=== PATIENT | female | born 1960 | race Caucasian/White ===

== ENCOUNTER 2016-06-25 11:30 | Emergency (ER) | payer OTHER ==
[2016-06-25 11:46] VITALS: BMI 38.0
--- NOTE | 2016-06-25 11:52 | PDOC ---
History of Present Illness - General Chief Complaint: Chest Pain Stated Complaint: CHEST PAIN Time Seen by Provider: 06/25/16 11:51 - History of Present Illness Initial Comments: 06/25/16 12:25 Complaint: Pain right rib cage History of present illness: Patient has had pain for several days in the right parasternal area, right costal margin, and right upper back along the medial scapular border. The pain is worse with deep inspiration and movement of the right arm and torso. It is also aggravated by direct pressure along the right edge of the sternum and along the right lower rib cage. Review of systems, no nausea vomiting diaphoresis shortness of breath. No fever/ chills, URI symptoms, sore throat, or cough. Remainder systems reviewed and found to be negative Past medical history: Sleep apnea for which she uses CPAP, spinal stenosis for which she has chronic upper and lower back pain, with exacerbation recently. No heavy work or lifting. Obesity. Ftz-pijudjf-vizvhnbrq diabetes. Hypertension. Hypothyroid. Glaucoma. GERD. Medications: Losartan, metformin, omeprazole, Synthroid, eyedrops, and multiple vitamins. Social history: Former smoker, no current use of tobacco alcohol or nonprescription drugs ALLERGIES: House dust, pepper, perfume. No medication ALLERGIES are known Family history: Reviewed and noncontributory. Specifically, there is no early coronary artery disease in parents or siblings. Physical exam: Alert and oriented 3, moderately obese, no acute distress, cheerful and cooperative Afebrile, vital signs normal HEENT clear Neck supple without any masses or nodes Lungs clear with full breath sounds throughout bilaterally. There is mild splinting with deep inspiration. There are no wheezes rales or rhonchi. There is tenderness along the right sternal border and right costal margin to palpation. There is also trigger point tenderness along the medial scapular border on the right side posteriorly. CV S1 and S2 normal without murmur or gallop pulses symmetric no JVD or edema Abdomen nondistended, bowel sounds normal, soft without masses tenderness organomegaly. Extremities no CCE Neurological intact Skin clear, no rash, adequate turgor and mucous membranes Impression: Most likely musculoskeletal pain, costochondritis, trigger point tenderness in the upper back. Much less likely cardiac origin Plan: EKG and enzymes, symptomatic treatment and follow up primary M.D. if studies are normal. Past History - Past Medical History Allergies/Adverse Reactions: Allergies Allergy/AdvReac Type Severity Reaction Status Date / Time house dust Allergy Mild SNEEZING Verified 08/21/15 16:44 pepper Allergy Verified 06/25/16 11:32 perfume Allergy Verified 06/25/16 11:31 NKDA Allergy Uncoded 08/21/15 16:44 Home Medications: Ambulatory Orders Calcium Carbonate [Calcium] 1,200 mg PO DAILY 06/25/16 Cholecalciferol (Vitamin D3) [Vitamin D3] 1,000 unit PO DAILY 06/25/16 Cyanocobalamin [Vitamin B12 -] 1,000 mcg PO DAILY 06/25/16 Glucosam/Chond/Hyalu/Cf Borate [Move Free Joint Health Tablet] 1 each PO BID 04/01 Latanoprost 0.005% Eye Drops [Xalatan 0.005% Eye Drops -] 1 drop OU HS 06/25/16 Levothyroxine [Synthroid -] 100 mcg PO DAILY 06/25/16 Losartan Potassium 50 mg PO DAILY 06/25/16 Metformin HCl 500 mg PO BID 06/25/16 Omeprazole 40 mg PO DAILY 06/25/16 Polyethylene Glycol 3350 [Miralax (For Daily Use) -] 17 gm PO DAILY 06/25/16 Ranitidine HCl [Zantac] 150 mg PO DAILY 06/25/16 Turmeric Root Extract [Turmeric] 800 mg PO DAILY 06/25/16 Anemia: No Asthma: No Cancer: No Cardiac Disorders: No CVA: No COPD: No CHF: No Dementia: No Diabetes: Yes GI Disorders: Yes (GERD GASTRIC ULCER) Disorders: No HTN: Yes Hypercholesterolemia: Yes Liver Disease: No Seizures: No Thyroid Disease: Yes (NODULES) Other medical history: SLEEP APNEA, CPAP - Surgical History Abdominal Surgery: Yes Appendectomy: No Cardiac Surgery: No Cholecystectomy: No Lung Surgery: No Neurologic Surgery: No Orthopedic Surgery: No - Immunization History Immunization Up to Date: Yes - Psycho/Social/Smoking Cessation Hx Anxiety: No Suicidal Ideation: No Smoking History: Former smoker Have you smoked in the past 12 months: No Number of Cigarettes Smoked Daily: 0 If you are a former smoker, when did you quit?: 2004 Information on smoking cessation initiated: No Hx Alcohol Use: No Drug/Substance Use Hx: No Substance Use Type: None Hx Substance Use Treatment: No Cardiac Specific PMH - Complaint Specific PMHX Pacemaker: No *Physical Exam - Vital Signs Last Vital Signs Temp Pulse Resp BP Pulse Ox 98.4 F 78 18 125/70 100 06/25/16 11:30 06/25/16 11:30 06/25/16 11:30 06/25/16 11:30 06/25/16 11:30 ED Treatment Course - LABORATORY CBC & Chemistry Diagram: 06/25/16 12:15 06/25/16 12:15 - ADDITIONAL ORDERS Additional order review: Laboratory Results 06/25/16 06/25/16 06/25/16 12:15 12:15 12:15 INR 0.98 Sodium 135 L Potassium 4.4 Chloride 102 Carbon Dioxide 29 H Anion Gap 4 L BUN 16 Creatinine 0.6 Creat Clearance w eGFR > 60 Random Glucose 91 Calcium 9.4 Total Bilirubin 0.6 AST 35 ALT 41 H Alkaline Phosphatase 48 Creatine Kinase 43 Troponin I < 0.03 L Total Protein 6.1 L Albumin 4.1 06/25/16 12:15 RBC 4.63 MCV 86.0 MCHC 33.0 RDW 11.9 MPV 9.0 Neutrophils % 56.9 Lymphocytes % 28.3 Monocytes % 10.3 H Eosinophils % 3.4 Basophils % 1.1 - RADIOLOGY Radiology Studies Ordered: Category Date Time Status CHEST X-RAY PORTABLE* [RAD] Stat Radiology 06/25/16 13:17 Taken - Medications Given in the ED: ED Medications Discontinued Medications Generic Name Dose Route Start Last Admin Trade Name Freq PRN Reason Stop Dose Admin Ketorolac Tromethamine 30 mg 06/25/16 13:32 06/25/16 13:50 Toradol Injection - IVPUSH 06/25/16 13:33 30 mg ONCE ONE Administration Medical Decision Making - Medical Decision Making 06/25/16 12:06 EKG: Normal sinus rhythm 76/m. Normal axes and intervals. No significant ST-T wave changes. Normal EKG. 06/25/16 14:06 Chest x-ray clear CBC chemistries and cardiac enzymes without significant abnormalities It is highly likely that pain is musculoskeletal. Symptomatic treatment and follow up primary physician. *DC/Admit/Observation/Transfer Diagnosis at time of Disposition: Acute costochondritis - Discharge Dispostion Disposition: HOME Condition at time of disposition: Stable Admit: No - Referrals Referrals: Kay Dowd [Primary Care Provider] - 3 days - Patient Instructions Printed Discharge Instructions: DI for Atypical Chest Pain, DI for Costochondritis
[2016-06-25 13:09] LABS: BASOPHIL 1.1 % (0-2.0); EOSINOPHIL 3.4 % (0-4.5); MCH 28.4 pg (25.7-33.7); NEUTROPHILS 56.9 % (42.8-82.8); PLATELET COUNT 215 K/MM3 (134-434); RDW 11.9 % (11.6-15.6); WHITE BLOOD COUNT 5.7 K/mm3 (4.0-10.0)
[2016-06-25 13:13] LABS: INR 0.98 (0.82-1.09); PROTHROMBIN TIME (PATIENT) 10.7 SEC (10.2-13.0)
[2016-06-25 13:16] LABS: ALBUMIN 4.1 g/dl (3.5-5.0); ALK PHOS 48 U/L (32-92); ANION GAP 4 (8-16); BILIRUBIN,TOTAL 0.6 mg/dl (0.2-1.0); CALCIUM 9.4 mg/dl (8.4-10.2); CO2 29 mmol/L (22-28); CPK(DFH) 43 IU/L (26-140); CREATININE 0.6 mg/dl (0.6-1.3); GLUCOSE,RANDOM 91 mg/dl (74-106); SGOT/AST 35 U/L (10-42); SGPT/ALT 41 U/L (10-40); TOT PROT 6.1 g/dl (6.4-8.3)
[2016-06-25] MEDS ORDERED: KETOROLAC TROMETHAMINE 30 MG/1 ML VIAL IVPUSH ONE (13:32)
[2016-06-25 13:33] LABS: TROPONIN I (DFP) < 0.03 ng/ml (0.03-0.50)
[2016-06-25] MEDS ORDERED: KETOROLAC TROMETHAMINE 30 MG/1 ML VIAL ONE (13:41)
[2016-06-25 14:34] VITALS: BP 121/69; PULSE 77; TEMP 98.1
--- NOTE | 2016-06-27 11:12 | EKG ---
Test Reason : Blood Pressure : / mmHG Vent. Rate : 076 BPM Atrial Rate : 076 BPM P-R Int : 168 ms QRS Dur : 088 ms QT Int : 374 ms P-R-T Axes : 015 035 023 degrees QTc Int : 420 ms NORMAL SINUS RHYTHM NORMAL ECG NO PREVIOUS ECGS AVAILABLE Confirmed by TOMMIE STOUT MD ([id number]) on 06/27/2016 11:12:13 AM Referred By: PAPI ABREU Confirmed By:TOMMIE STOUT MD
== END 2016-06-25 14:35 | disposition home or self-care (01) ==
LOC: FER 11:30
PROC: 3E0333Z Introduction of Anti-inflammatory into Peripheral Vein, Percutaneous Approach (ICD-10-PCS; principal; 2016-06-25)
DX: M94.0 Chondrocostal junction syndrome [Tietze] (principal); K21.9 Gastro-esophageal reflux disease without esophagitis; I10 Essential (primary) hypertension; E78.00 Pure hypercholesterolemia, unspecified; E07.9 Disorder of thyroid, unspecified; G47.30 Sleep apnea, unspecified; E11.9 Type 2 diabetes mellitus without complications; Z87.891 Personal history of nicotine dependence
CPT/HCPCS: 36415; 71010-TC; 80053; 82550; 84484; 85025; 85610; 93005; 96374; 99285-25

== ENCOUNTER 2018-06-04 07:43 | Day surgery (SDC) | payer OTHER ==
[2018-05-27 17:04] VITALS: BMI 35.0
[2018-06-04] MEDS ORDERED: PROPOFOL 20 ML ONE ×3 (08:53)
[2018-06-04] MEDS ORDERED: LIDOCAINE HCL/PF 2% SDV 5ML VIAL ONE (08:53)
[2018-06-04 10:45] VITALS: BP 107/65; PULSE 65; TEMP 98
--- NOTE | 2018-06-08 18:39 | PATH ---
Surgical Pathology Report Patient Name: GREGG SAINI [facility]. Rec. #: [id number] /Age/Gender: 1960 (Age: 58) / F Account: [id number] Location: [facility] Taken: 06/04/2018 Received: 06/05/2018 Reported: 06/08/2018 Physicians: Trey Cortez M.D. Specimen(s) Received A: BX 2ND PART DUODENUM B: BX ANTRUM Clinical History History of polyps, GERD Final Diagnosis A. SECOND PART DUODENUM, BIOPSY: DUODENUM MUCOSA WITH NO SIGNIFICANT PATHOLOGIC CHANGES. NO HISTOLOGIC EVIDENCE OF CELIAC DISEASE. B. ANTRUM, BIOPSY: GASTRIC MUCOSA WITH CHRONIC GASTRITIS. IMMUNOSTAIN FOR H. PYLORI IS NEGATIVE. NEGATIVE FOR INTESTINAL METAPLASIA. Electronically Signed Aurelio Fraser M.D. Gross Description A. Received in formalin, labeled "second portion of duodenum" are 2 luis, irregular portions of soft tissue averaging 0.4 cm. in greatest dimension. The specimens are submitted in toto in one cassette. B. Received in formalin, labeled "antrum" are 2 luis, irregular portions of soft tissue measuring 0.3 and 0.4 cm. in greatest dimension. The specimens are submitted in toto in one cassette. 06/05/201806/05/2018
== END 2018-06-04 10:30 | disposition home or self-care (01) ==
LOC: FASU-ENDO 07:43
PROVIDERS: ATTEND Internal Medicine Gastroenterology
PROC: 0DB68ZX Excision of Stomach, Via Natural or Artificial Opening Endoscopic, Diagnostic (ICD-10-PCS; 2018-06-04)
PROC: 0DB98ZX Excision of Duodenum, Via Natural or Artificial Opening Endoscopic, Diagnostic (ICD-10-PCS; principal; 2018-06-04 08:30)
DX: K29.50 Unspecified chronic gastritis without bleeding (principal); R12 Heartburn
CPT/HCPCS: 82962; 88305-TC; 88342-TC

== ENCOUNTER 2021-01-17 18:12 | Observation (INO) | payer OTHER ==
[2021-01-17 19:28] LABS: BASO % 1.1 % (0-2.0); EOS % 2.2 % (0-4.5); HEMATOCRIT 40.9 % (32.4-45.2); HEMOGLOBIN 13.8 GM/dl (10.7-15.3); LYMPH % 31.3 % (8-40); MCH 29.2 pg (25.7-33.7); MCHC 33.7 g/dl (32.0-36.0); MEAN CELL VOLUME 86.5 fl (80-96); MEAN PLT VOLUME 8.6 fl (7.5-11.1); MONO % 7.2 % (3.8-10.2); NEUT % 58.2 % (42.8-82.8); PLATELET COUNT 270 10^3/uL (134-434); RBC 4.73 M/mm3 (3.60-5.2); RDW 12.2 % (11.6-15.6); WHITE BLOOD COUNT 6.3 K/mm3 (4.0-10.8)
[2021-01-17 19:37] LABS: ALBUMIN 4.4 g/dl (3.4-5.0); ALK PHOS 53 U/L (45-117); ANION GAP 11 MMOL/L (8-16); BILIRUBIN,TOTAL 0.7 mg/dl (0.2-1); CALCIUM 9.1 mg/dl (8.5-10); CHLORIDE 101 mmol/L (98-107); CO2 26 mmol/L (21-32); CREATININE 0.7 mg/dl (0.55-1.3); GLUCOSE,RANDOM 94 mg/dl (74-106); SGOT/AST 36 U/L (15-37); SGPT/ALT 78 U/L (13-61); SODIUM 138 mmol/L (136-145); TOT PROT 6.7 g/dl (6.4-8.2)
[2021-01-17] MEDS ORDERED: ASPIRIN 81 MG CHEWABLE TABLETS PO ONE (21:23)
[2021-01-17] MEDS ORDERED: ASPIRIN 81 MG CHEWABLE TABLETS ONE (21:52)
[2021-01-17 23:54] VITALS: BMI 38.0
[2021-01-18] MEDS: LOSARTAN POTASSIUM 25 MG TABLET PO SCH ×2 (00:34→21:44)
[2021-01-18] MEDS ORDERED: LEVOTHYROXINE NA 100 MCG TABLET (FP) PO SCH (07:00)
[2021-01-18 08:13] LABS: BASO % 0.9 % (0-2.0); EOS % 2.9 % (0-4.5); HEMATOCRIT 40.1 % (32.4-45.2); HEMOGLOBIN 13.3 GM/dl (10.7-15.3); LYMPH % 40.3 % (8-40); MCH 28.5 pg (25.7-33.7); MCHC 33.1 g/dl (32.0-36.0); MEAN CELL VOLUME 86.2 fl (80-96); MEAN PLT VOLUME 8.4 fl (7.5-11.1); MONO % 8.1 % (3.8-10.2); NEUT % 47.8 % (42.8-82.8); PLATELET COUNT 267 10^3/uL (134-434); RBC 4.65 M/mm3 (3.60-5.2); RDW 12.3 % (11.6-15.6); WHITE BLOOD COUNT 5.6 K/mm3 (4.0-10.8)
[2021-01-18 09:30] LABS: CALCIUM 8.8 mg/dl (8.5-10); CREATININE 0.8 mg/dl (0.55-1.3); MAGNESIUM 1.9 mg/dL (1.8-2.4)
[2021-01-18] MEDS ORDERED: PANTOPRAZOLE 20 MG TABLET PO SCH (10:00)
[2021-01-18] MEDS ORDERED: ASPIRIN 81 MG CHEWABLE TABLETS PO SCH (10:00)
[2021-01-18] MEDS ORDERED: EZETIMIBE 10 MG TABLET (FP) PO SCH (10:00)
[2021-01-18] MEDS ORDERED: LOSARTAN POTASSIUM 25 MG TABLET PO SCH (10:00)
[2021-01-18] MEDS ORDERED: MULTIVITAMINS THER W-MINERALS COMBO TABLET (FP) PO SCH (10:00)
[2021-01-18] MEDS: INSULIN SLIDING SCALE (NOVOLOG) 1 VIAL SQ SCH ×3 (12:44→21:43)
[2021-01-18 19:35] VITALS: BP 105/72; PULSE 86; TEMP 98.7
== END 2021-01-18 21:50 | disposition home or self-care (01) ==
LOC: FER 18:12 → FM/S 21:18 → UNDOADMOB 22:06 → INTOOBSV 22:06 → FM/S 22:06
PROVIDERS: ADMIT Internal Medicine; ATTEND Nurse Practitioner Acute Care
DX: R07.9 Chest pain, unspecified (principal); E03.9 Hypothyroidism, unspecified; I10 Essential (primary) hypertension; E78.5 Hyperlipidemia, unspecified; E66.8 Other obesity; Z68.38 Body mass index [BMI] 38.0-38.9, adult; R73.03 Prediabetes; Z88.8 Allergy status to other drugs, medicaments and biological substances; Z91.09 Other allergy status, other than to drugs and biological substances; Z20.822 Contact with and (suspected) exposure to COVID-19; K21.9 Gastro-esophageal reflux disease without esophagitis
CPT/HCPCS: 36415; 71045-TC-FY; 80048; 80053; 80061; 82550; 82962; 83735; 84443; 84484; 85025; 93005; 99285-25; C9803; G0378; U0003; U0005

== ENCOUNTER 2022-08-22 06:04 | Day surgery (SDC) | payer OTHER ==
[2022-08-19 12:32] VITALS: BMI 35.4
[2022-08-22] MEDS ORDERED: DEXAMETHASONE SOD PHOSPHATE/PF 10 MG/ML SDV ONE (07:04)
[2022-08-22] MEDS ORDERED: MIDAZOLAM HCL 2 MG/2 ML SINGLE DOSE VIAL ONE ×3 (07:04→09:00)
[2022-08-22] MEDS ORDERED: BUPIVACAINE HCL/PF 0.5% (5 MG/ML) 30 ML VIAL IJ ONE (07:04)
[2022-08-22] MEDS ORDERED: EPINEPHrine 1:1,000 1,000 MCG/ML ML ONE (07:10)
[2022-08-22] MEDS ORDERED: PROPOFOL 40 ML ONE (07:59)
[2022-08-22] MEDS ORDERED: PROPOFOL 20 ML ONE ×3 (07:59→10:09)
[2022-08-22] MEDS ORDERED: LIDOCAINE HCL 2% 100 MG/5 ML DISP.SYRIN ONE (08:06)
[2022-08-22] MEDS ORDERED: KETOROLAC TROMETHAMINE 30 MG/1 ML VIAL ONE (09:06)
[2022-08-22] MEDS ORDERED: TRANEXAMIC ACID 1000 MG/10 ML VIAL ONE (09:06)
[2022-08-22] MEDS ORDERED: DEXAMETHASONE SOD PHOSPHATE 4 MG/1 ML VIAL ONE (09:06)
[2022-08-22] MEDS ORDERED: ONDANSETRON 4 MG/2 ML VIAL ONE (09:06)
[2022-08-22] MEDS ORDERED: FLUMAZENIL 0.5 MG/5 ML VIAL ONE (09:06)
[2022-08-22] MEDS ORDERED: ceFAZolin SODIUM 1 GM VIAL ONE (09:06)
[2022-08-22] MEDS ORDERED: ACETAMINOPHEN INJECTION 100 ML IVPB ONE (11:14)
[2022-08-22] MEDS ORDERED: ONDANSETRON 4 MG/2 ML VIAL IVPUSH PRN (11:16)
[2022-08-22] MEDS ORDERED: ACETAMINOPHEN 1000 MG/100 ML BAG IVPB ONE (11:17)
[2022-08-22] MEDS ORDERED: LACTATED RINGERS SOLUTION 1,000 ML IV SCH (11:30)
[2022-08-22 12:54] VITALS: TEMP 97.8
[2022-08-22 13:50] VITALS: BP 104/58; PULSE 76; RESP 18
== END 2022-08-22 13:25 | disposition home or self-care (01) ==
LOC: FASU 06:04
PROVIDERS: ATTEND Orthopaedic Surgery Sports Medicine
PROC: 0LS34ZZ Reposition Right Upper Arm Tendon, Percutaneous Endoscopic Approach (ICD-10-PCS; principal; 2022-08-22 08:22)
PROC: 0RNJ4ZZ Release Right Shoulder Joint, Percutaneous Endoscopic Approach (ICD-10-PCS; 2022-08-22 08:22)
DX: M75.121 Complete rotator cuff tear or rupture of right shoulder, not specified as traumatic (principal); M75.21 Bicipital tendinitis, right shoulder; M75.41 Impingement syndrome of right shoulder
CPT/HCPCS: 82962; 94760; C1713